=== PATIENT | male | born 2000 | race Caucasian/White ===

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

== ENCOUNTER 2022-09-04 16:48 | Emergency (ER) | payer OTHER ==
[~2022-09-04] VITALS: Ht 406.4 cm; Wt 148.5 kg
[2022-09-04 16:54] VITALS: BP 168/91
[2022-09-04] MEDS ORDERED: ACETAMINOPHEN EXTRA STRENGTH 500 MG TAB PO ONE (17:00)
--- NOTE | 2022-09-04 17:10 | NUR ---
COVID, FLU SWABS DONE.
--- NOTE | 2022-09-04 17:10 | NUR ---
PT AMB TO BED 2.
--- NOTE | 2022-09-04 17:20 | NUR ---
pt in bed 2, nad, lungs ctab, o2 sat 98% ra, sru p shanita s2
[2022-09-04] MEDS ORDERED: TAM75 PO (17:34)
[2022-09-04 17:43] VITALS: BP 144/77
--- NOTE | 2022-09-04 17:48 | NUR ---
Patient discharged with v/s stable. Written and verbal after care instructions given and explained. Patient verbalized understanding. Ambulatory with steady gait. All questions addressed prior to discharge. Advised to follow up with PMD.
[2022-09-04] MEDS ORDERED: ACET-10509 PO (17:53)
== END 2022-09-04 17:48 | disposition home or self-care (01) ==
LOC: MED 16:48
DX: J10.1 Influenza due to other identified influenza virus with other respiratory manifestations (principal); Z20.822 Contact with and (suspected) exposure to COVID-19; Z79.899 Other long term (current) drug therapy
CPT/HCPCS: 71045; 87426; 87804; 99284; Q0092

== ENCOUNTER 2023-06-06 21:09 | Emergency (ER) | payer OTHER ==
[~2023-06-06] VITALS: Ht 177.8 cm; Wt 140.6 kg
[~2023-06-06 21:09] MED LIST: ACET-10509 PO; TAM75 PO
[2023-06-06 21:34] VITALS: BP 199/115; PULSE 121; RESP 16; TEMP 100.4; O2SAT 97
[2023-06-06] MEDS ORDERED: ACETAMINOPHEN EXTRA STRENGTH 500 MG TAB PO ONE (22:15)
[2023-06-06 22:20] LABS: FLU A ANTIGEN negative (NEGATIVE); FLU B ANTIGEN NEGATIVE (NEGATIVE)
[2023-06-06] MEDS ORDERED: ACET-10509 PO (23:24)
[2023-06-06] MEDS ORDERED: IBUP-2809 PO (23:24)
[2023-06-06 23:47] VITALS: BP 189/90; PULSE 81; RESP 17; TEMP 99.7; O2SAT 97
== END 2023-06-06 23:47 | disposition home or self-care (01) ==
LOC: MED 21:09
DX: B34.9 Viral infection, unspecified (principal); Z20.822 Contact with and (suspected) exposure to COVID-19; Z79.899 Other long term (current) drug therapy
CPT/HCPCS: 71045; 99284